=== PATIENT | female | born 1990 | race Caucasian/White ===

== ENCOUNTER 2018-04-29 15:58 | Outpatient (CLI) | payer MEDICAID ==
[2018-04-29 21:23] LABS: ADD UMIC YES; UR AMORPHOUS CRYSTAL FEW /HPF (NONE SEEN); UR ASCORBIC ACID NEGATIVE (NEGATIVE); UR BACTERIA FEW /HPF (NONE SEEN); UR BILIRUBIN (Dip) NEGATIVE (NEGATIVE); UR BLOOD (Dip) 3+ mg/dL (NEGATIVE); UR CLARITY CLEAR (CLEAR); UR COLOR STRAW (YELLOW); UR GLUCOSE (Dip) NEGATIVE (NEGATIVE); UR KETONES (Dip) NEGATIVE (NEGATIVE); UR LEUKOCYTE ESTERASE (Dip) 2+ Leu/ul (NEGATIVE); UR NITRITE (Dip) NEGATIVE (NEGATIVE); UR RBC 19 /HPF (0-5); UR SPECIFIC GRAVITY (Dip) 1.004 (1.003-1.030); UR SQUAMOUS EPITHELIAL CELL FEW /HPF (FEW); UR TOTAL PROTEIN (Dip) NEGATIVE (NEGATIVE); UR UROBILINOGEN (Dip) NEGATIVE (NEGATIVE); UR WBC 30 /HPF (0-5)
== END 2018-04-29 21:30 | disposition home or self-care (01) ==
LOC: OBT 15:58 → L-D 15:59 → OBT 21:30
DX: O62.9 Abnormality of forces of labor, unspecified (principal); Z3A.38 38 weeks gestation of pregnancy
CPT/HCPCS: 81001

== ENCOUNTER 2018-05-02 05:13 | Inpatient (IN) | payer MEDICAID ==
[2018-05-02] MEDS ORDERED: CARBOPROST 250 MCG INJ IM ×2 (06:30→22:00)
[2018-05-02] MEDS: LACTATED RINGER'S 1,000 ML IV* ×4 (06:30→21:48)
[2018-05-02] MEDS ORDERED: BUTORPHANOL 2 MG INJ IV (06:30)
[2018-05-02] MEDS ORDERED: IBUPROFEN 600 MG TAB PO (06:30)
[2018-05-02] MEDS ORDERED: OXYTOCIN 30 UNITS/LR 500 ML IV ×3 (06:30→22:00)
[2018-05-02 06:37] LABS: ADD MAN DIFF? NO
[2018-05-02 06:43] LABS: BASOPHIL # 0.1 10^3/ul (0.0-0.1); BASOPHILS % 0.4 % (0.0-2.0); EOSINOPHILS % 0.3 % (0.0-7.0); HEMATOCRIT 33.8 % (37.0-47.0); HEMOGLOBIN 11.8 g/dl (12.0-16.0); LYMPHOCYTES # 2.6 10^3/ul (0.8-2.9); LYMPHOCYTES % 20.5 % (15.0-51.0); MEAN CORPUSCULAR HEMOGLOBIN 31.8 pg (29.0-33.0); MEAN CORPUSCULAR HGB CONC 34.9 g/dl (32.0-37.0); MEAN CORPUSCULAR VOLUME 91.1 fl (82.0-101.0); MEAN PLATELET VOLUME 10.6 fl (7.4-10.4); MONOCYTE # 0.7 10^3/ul (0.3-0.9); MONOCYTES % 5.8 % (0.0-11.0); NEUTROPHIL # 9.2 10^3/ul (1.6-7.5); NEUTROPHILS % 72.2 % (39.0-77.0); PLATELET COUNT 228 10^3/UL (140-415); RED BLOOD COUNT 3.71 10^6/ul (4.20-5.40); RED CELL DISTRIBUTION WIDTH 12.6 % (11.5-14.5)
[2018-05-02 06:43] LABS: WHITE BLOOD COUNT 12.7 10^3/ul (4.8-10.8)
[2018-05-02 07:02] LABS: INR 0.83; PROTIME 11.5 Sec (11.9-14.9); PT RATIO 0.9
[2018-05-02 07:30] LABS: HEPATITIS B SURFACE ANTIGEN NEGATIVE (NEGATIVE)
[2018-05-02] MEDS: LACTATED RINGER'S 1,000 ML IV (07:30)
[2018-05-02] MEDS ORDERED: FENTAnyl 2MCG/ML-ROPIV 0.2% 100 ML (07:54)
[2018-05-02] MEDS: OXYTOCIN 30 UNITS/LR 500 ML IV ×2 (09:32→20:56)
[2018-05-02] MEDS ORDERED: NALOXONE (0.4 MG/ML) INJ IV (10:30)
[2018-05-02] MEDS ORDERED: ONDANSETRON 4 MG INJ IV ×2 (10:30→22:00)
[2018-05-02 15:12] LABS: RAPID PLASMA REAGIN NONREACTIVE (NR)
[2018-05-02] MEDS: FENTAnyl 2MCG/ML-ROPIV 0.2% 100 ML BAG EPI (17:48)
[2018-05-02] MEDS: METHYLERGONOVINE 0.2 MG INJ IM (20:54)
[2018-05-02] MEDS: MISOPROSTOL 200 MCG TAB PR (20:54)
[2018-05-02] MEDS ORDERED: CEFAZOLIN 2 GM/50 ML (PMX) 50 ML IVPB (21:09)
[2018-05-02] MEDS: CEFAZOLIN 2 GM/50 ML (PMX) 50 ML IVPB (21:23)
[2018-05-02] MEDS ORDERED: DEXTROSE 5%-LR 1,000 ML IV (21:48)
[2018-05-02] MEDS ORDERED: METHYLERGONOVINE 0.2 MG INJ IM (22:00)
[2018-05-02] MEDS ORDERED: MISOPROSTOL 200 MCG TAB PR (22:00)
[2018-05-02] MEDS ORDERED: HYDROCODONE/APAP (5/325) TAB PO (22:00)
[2018-05-02] MEDS ORDERED: ACETAMINOPHEN 325 MG TAB PO (22:00)
[2018-05-02] MEDS ORDERED: DIPHENHYDRAMINE 50 MG INJ IV (22:00)
[2018-05-02] MEDS ORDERED: ZOLPIDEM 5 MG TAB PO (22:00)
[2018-05-03] MEDS: BENZOCAINE 20% 56 ML SPRAY TOP (00:36)
[2018-05-03] MEDS: DIBUCAINE 1% 30 GM OINT PR (00:36)
[2018-05-03] MEDS: WITCH HAZEL/GLYCERIN PAD PR (00:36)
[2018-05-03] MEDS: LANOLIN 7 GM TUBE TOP (00:37)
[2018-05-03] MEDS: IBUPROFEN 600 MG TAB PO ×5 (00:37→23:49)
[2018-05-03 05:55] LABS: ADD MAN DIFF? NO
[2018-05-03 06:01] LABS: WHITE BLOOD COUNT 19.7 10^3/ul (4.8-10.8)
[2018-05-03 06:01] LABS: ABNORMAL IP MESSAGE 1; BASOPHILS % 0.2 % (0.0-2.0); EOSINOPHILS % 0.2 % (0.0-7.0); HEMATOCRIT 28.2 % (37.0-47.0); HEMOGLOBIN 9.8 g/dl (12.0-16.0); LYMPHOCYTES # 2.4 10^3/ul (0.8-2.9); LYMPHOCYTES % 12.4 % (15.0-51.0); MEAN CORPUSCULAR HGB CONC 34.8 g/dl (32.0-37.0); MEAN CORPUSCULAR VOLUME 92.2 fl (82.0-101.0); MEAN PLATELET VOLUME 10.6 fl (7.4-10.4); NEUTROPHIL # 15.1 10^3/ul (1.6-7.5); NEUTROPHILS % 76.7 % (39.0-77.0); PLATELET COUNT 184 10^3/UL (140-415); RED BLOOD COUNT 3.06 10^6/ul (4.20-5.40); RED CELL DISTRIBUTION WIDTH 12.9 % (11.5-14.5)
[2018-05-03 06:29] LABS: POSITIVE DIFF @See below
[2018-05-03] MEDS: LACTATED RINGER'S 1,000 ML IV* (07:22)
[2018-05-03] MEDS: SENNA/DOCUSATE NA (8.6MG/50MG) TAB PO (09:45)
[2018-05-03] MEDS ORDERED: LACTATED RINGER'S 500 ML IV (14:00)
[2018-05-03] MEDS: PIPER-TAZO 3.375 GM IV (PMX) 100 ML IVPB ×2 (14:10→22:28)
[2018-05-03] MEDS: DOCUSATE SODIUM 100 MG CAP PO (20:47)
[2018-05-04] MEDS: MAGNESIUM HYDROXIDE 30ML CUP PO (06:09)
[2018-05-04] MEDS: IBUPROFEN 600 MG TAB PO ×3 (06:09→17:36)
[2018-05-04] MEDS: PIPER-TAZO 3.375 GM IV (PMX) 100 ML IVPB ×2 (06:09→14:20)
[2018-05-04] MEDS: MINERAL OIL LIGHT 10 ML VIAL TOP (07:37)
[2018-05-04] MEDS: LIDOCAINE 0.5% (SDV) 50 ML INJ INFIL (07:37)
[2018-05-04] MEDS: MEASLES,MUMPS,RUBELLA VACCINE INJ SC* (09:00)
[2018-05-04] MEDS: DIPHTH/TET/ACEL PERTUSS (ADULT) 0.5 ML VIAL IM* (11:27)
[2018-05-04 11:44] LABS: ADD MAN DIFF? NO
[2018-05-04 11:46] LABS: BASOPHILS % 0.3 % (0.0-2.0); EOSINOPHILS # 0.2 10^3/ul (0.0-0.5); EOSINOPHILS % 1.2 % (0.0-7.0); HEMATOCRIT 26.6 % (37.0-47.0); LYMPHOCYTES # 2.8 10^3/ul (0.8-2.9); LYMPHOCYTES % 19.3 % (15.0-51.0); MEAN CORPUSCULAR HEMOGLOBIN 32.1 pg (29.0-33.0); MEAN CORPUSCULAR HGB CONC 33.8 g/dl (32.0-37.0); MEAN PLATELET VOLUME 10.2 fl (7.4-10.4); MONOCYTE # 0.5 10^3/ul (0.3-0.9); MONOCYTES % 3.5 % (0.0-11.0); NEUTROPHIL # 10.7 10^3/ul (1.6-7.5); NEUTROPHILS % 74.3 % (39.0-77.0); PLATELET COUNT 185 10^3/UL (140-415); RED CELL DISTRIBUTION WIDTH 13.4 % (11.5-14.5)
[2018-05-04 11:46] LABS: WHITE BLOOD COUNT 14.5 10^3/ul (4.8-10.8)
[2018-05-04] MEDS: BENZOCAINE 20% 56 ML SPRAY TOP (14:20)
[2018-05-04] MEDS: LANOLIN 7 GM TUBE TOP (14:21)
[2018-05-04] MEDS: WITCH HAZEL/GLYCERIN PAD PR (14:21)
[2018-05-04] MEDS: DIBUCAINE 1% 30 GM OINT PR (14:21)
== END 2018-05-04 20:40 | disposition home or self-care (01) | DRG 807 ==
LOC: OBT 05:13 → L-D 05:14 → OBT 05:40 → L-D 05:40 → PP1 22:50
PROVIDERS: Obstetrics & Gynecology
PROC: 10E0XZZ Delivery of Products of Conception, External Approach (ICD-10-PCS; principal; 2018-05-02)
PROC: 0W8NXZZ Division of Female Perineum, External Approach (ICD-10-PCS; 2018-05-02)
DX: O70.20 Third degree perineal laceration during delivery, unspecified (principal); Z37.0 Single live birth; Z3A.39 39 weeks gestation of pregnancy; Z23 Encounter for immunization
CPT/HCPCS: 62319; 85025; 85610; 85730; 86592; 86850; 86900; 86901; 87340; 90686; 90715